=== PATIENT | male | born 1990 | race Caucasian/White ===

== ENCOUNTER 2021-04-06 21:21 | Inpatient (IN) | payer OTHER ==
[2021-04-06 21:35] VITALS: BMI 24.0
[2021-04-06] MEDS ORDERED: BISMUTH SUBSALICYLATE 524 MG/30 ML PO PRN (22:49)
[2021-04-06] MEDS ORDERED: MAG HYDROX/AL HYDROX/SIMETH 30 ML UNIT-DOSE CUP PO PRN (22:49)
[2021-04-06] MEDS ORDERED: IBUPROFEN 400 MG TABLET (FP) PO PRN (22:49)
[2021-04-06] MEDS ORDERED: MENTHOL/PHENOL 1 EACH UD MM PRN (22:49)
[2021-04-06] MEDS ORDERED: MAGNESIUM HYDROX 2400MG/30ML ORAL SUSPENSION 30 ML CUP PO PRN (22:49)
[2021-04-06] MEDS ORDERED: ONDANSETRON *ODT* 4 MG TABLET SL PRN (22:49)
[2021-04-06] MEDS ORDERED: NICOTINE POLACRILEX 2 MG GUM BUC PRN (22:49)
[2021-04-06] MEDS ORDERED: ACETAMINOPHEN 325 MG TABLET (FP) PO PRN ×2 (22:49)
[2021-04-06] MEDS ORDERED: MAGNESIUM CITRATE 300 ML BOTTLE PO PRN (22:49)
[2021-04-06] MEDS ORDERED: LORazepam 1 MG TABLET PO PRN (22:53)
[2021-04-07] MEDS: LORazepam 2 MG TABLET PO SCH ×5 (00:15→22:19)
[2021-04-07] MEDS: NICOTINE 14 MG/24 HOURS TOPICAL PATCH TD SCH (10:06)
[2021-04-07] MEDS: PANTOPRAZOLE 20 MG TABLET PO SCH (10:07)
[2021-04-07] MEDS: PRENATAL VITAMINS W/ FOLIC ACID TABLET (FP) PO SCH (10:07)
[2021-04-07 10:25] LABS: CALCIUM 8.5 mg/dL (8.5-10.1)
[2021-04-07 10:26] LABS: ALBUMIN 3.8 g/dl (3.4-5.0); BLOOD UREA NITROGEN 11.2 mg/dL (7-18)
[2021-04-07 10:27] LABS: HEMATOCRIT 41.9 % (35.4-49); HEMOGLOBIN 14.7 GM/dL (11.7-16.9); MCH 33.1 pg (25.7-33.7); MCHC 35.2 g/dl (32.0-35.9); MEAN PLT VOLUME 7.4 fl (7.5-11.1); PLATELET COUNT 238 10^3/uL (134-434); RBC 4.46 M/mm3 (4.00-5.60); RDW 13.7 % (11.9-15.9); WHITE BLOOD COUNT 5.9 K/mm3 (4.0-10.0)
[2021-04-07 10:29] LABS: CREATININE 0.8 mg/dL (0.55-1.3)
[2021-04-07 10:30] LABS: BILIRUBIN,TOTAL 0.5 mg/dL (0.2-1)
[2021-04-07] MEDS ORDERED: hydrOXYzine PAMOATE 50 MG CAPSULE (FP) PO ONE (11:50)
[2021-04-07] MEDS ORDERED: METOPROLOL TARTRATE 25 MG TABLET (FP) PO ONE (21:25)
[2021-04-07] MEDS ORDERED: METOPROLOL TARTRATE 50 MG TABLET (FP) PO ONE (21:30)
[2021-04-07] MEDS: MELATONIN 5 MG TABLETS PO SCH (22:18)
[2021-04-07] MEDS: THIAMINE HCL 100 MG TABLET (FP) PO SCH (22:19)
[2021-04-08] MEDS: LORazepam 1 MG TABLET PO SCH ×4 (05:06→22:21)
[2021-04-08] MEDS: METHOCARBAMOL 500 MG TABLET PO PRN ×3 (05:08→23:32)
[2021-04-08] MEDS: NICOTINE 14 MG/24 HOURS TOPICAL PATCH TD SCH (10:26)
[2021-04-08] MEDS: PANTOPRAZOLE 20 MG TABLET PO SCH (10:27)
[2021-04-08] MEDS: PRENATAL VITAMINS W/ FOLIC ACID TABLET (FP) PO SCH (10:27)
[2021-04-08] MEDS: hydrOXYzine PAMOATE 25 MG CAPSULE (FP) PO PRN ×2 (10:29→22:22)
[2021-04-08 11:03] LABS: CALCIUM 9.4 mg/dL (8.5-10.1)
[2021-04-08 11:04] LABS: ALBUMIN 3.6 g/dl (3.4-5.0); BLOOD UREA NITROGEN 13.3 mg/dL (7-18)
[2021-04-08 11:07] LABS: CREATININE 0.9 mg/dL (0.55-1.3)
[2021-04-08 11:08] LABS: BILIRUBIN,TOTAL 0.7 mg/dL (0.2-1); TOT PROT 7.8 g/dl (6.4-8.2)
[2021-04-08] MEDS ORDERED: MASKS NR ONE (16:33)
[2021-04-08] MEDS ORDERED: NICOTINE 10 MG CARTRIDGE (INHALER) IH PRN (17:51)
[2021-04-08] MEDS: THIAMINE HCL 100 MG TABLET (FP) PO SCH (22:20)
[2021-04-08] MEDS: MELATONIN 5 MG TABLETS PO SCH (22:20)
[2021-04-09] MEDS ORDERED: LORazepam 0.5 MG TABLET PO PRN
[2021-04-09] MEDS: LORazepam 0.5 MG TABLET PO SCH ×3 (05:13→17:17)
[2021-04-09] MEDS: METHOCARBAMOL 500 MG TABLET PO PRN ×2 (05:14→13:20)
[2021-04-09] MEDS: PRENATAL VITAMINS W/ FOLIC ACID TABLET (FP) PO SCH (10:33)
[2021-04-09] MEDS: PANTOPRAZOLE 20 MG TABLET PO SCH (10:33)
[2021-04-09] MEDS: NICOTINE 14 MG/24 HOURS TOPICAL PATCH TD SCH (10:34)
[2021-04-09] MEDS: hydrOXYzine PAMOATE 25 MG CAPSULE (FP) PO PRN ×2 (10:36→17:17)
[2021-04-09 17:25] VITALS: BP 143/94; PULSE 92; TEMP 97.3
[2021-04-10] MEDS ORDERED: LORazepam 0.5 MG TABLET PO ONE (05:00)
== END 2021-04-09 17:39 | disposition home or self-care (01) | DRG 775 ==
LOC: YASAS 21:21 → Y3N 23:04
PROVIDERS: ADMIT Allergy & Immunology; ATTEND Allergy & Immunology
PROC: HZ2ZZZZ Detoxification Services for Substance Abuse Treatment (ICD-10-PCS; principal; 2021-04-06)
DX: F10.230 Alcohol dependence with withdrawal, uncomplicated (principal); F12.20 Cannabis dependence, uncomplicated; F17.213 Nicotine dependence, cigarettes, with withdrawal; K21.9 Gastro-esophageal reflux disease without esophagitis; Q60.5 Renal hypoplasia, unspecified
CPT/HCPCS: 36415; 80053; 85027; 86780; 93005; 93010; C9803; Q0162; U0003; U0005